=== PATIENT | female | born 1960 | race Caucasian/White ===

== ENCOUNTER 2016-04-25 07:41 | Day surgery (SDC) | payer OTHER ==
[2016-04-25] MEDS ORDERED: Lactated Ringer's 500 ML IV ONE (08:24)
[2016-04-25 08:26] VITALS: BMI 27.4
[2016-04-25] MEDS ORDERED: Propofol 10 mg/ml Inj (20 ML) ONE (10:30)
[2016-04-25 11:18] VITALS: TEMP 96.9
[2016-04-25 11:19] VITALS: BP 104/58; PULSE 77; RESP 18; O2SAT 100
== END 2016-04-25 11:21 | disposition home or self-care (01) ==
LOC: H.ENDO 07:41
PROVIDERS: ATTEND Internal Medicine Gastroenterology
DX: Z12.11 Encounter for screening for malignant neoplasm of colon (principal); K64.8 Other hemorrhoids